=== PATIENT | female | born 1990 | race Hispanic/Latino ===

== ENCOUNTER 2017-04-07 04:35 | Emergency (ER) | payer BC ==
[2017-04-07 04:58] VITALS: BMI 24.3
[2017-04-07 05:01] VITALS: BP 135/84; PULSE 89; RESP 16; TEMP 97.7; O2SAT 99
[2017-04-07] MEDS ORDERED: Sodium Chloride 0.9% 1,000 ML IV STA (05:24)
[2017-04-07 05:33] LABS: BASO % 0.1 % (0.0-2.0); EOS % 0.3 % (0.0-4.0); HEMATOCRIT 41.7 % (34.0-47.0); LYMPH # 0.4 K/uL (1.0-4.3); LYMPH % 3.1 % (20.0-40.0); MEAN CELL VOLUME 96.8 fl (81.0-99.0); MEAN CORPUSCULAR HEMOGLOBIN 31.8 pg (27.0-31.0); MEAN CORPUSCULAR HGB CONC 32.8 g/dL (33.0-37.0); MEAN PLATELET VOLUME 8.1 fl (7.2-11.7); MONO # 0.5 K/uL (0.0-0.8); MONO % 3.6 % (0.0-10.0); NEUT # 13.6 K/uL (1.8-7.0); NEUT % 92.9 % (50.0-75.0); PLATELET COUNT 246 K/uL (130-400); RED CELL DISTRIBUTION WIDTH 12.7 % (11.5-14.5); WHITE BLOOD COUNT 14.6 K/uL (4.8-10.8)
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
[2017-04-07 05:45] LABS: ALB/GLOB RATIO 1.5 (1.0-2.1); ALKALINE PHOSPHATASE 64 U/L (38-126); ALT/SGPT 28 U/L (9-52); AST/SGOT 32 U/L (14-36); BILIRUBIN,TOTAL 0.9 mg/dl (0.2-1.3); BLOOD UREA NITROGEN 14 mg/dl (7-17); CALCIUM 9.4 mg/dL (8.4-10.2); CARBON DIOXIDE 24 mmol/L (22-30); CHLORIDE 105 mmol/L (98-107); GFR AFRICAN-AMERICAN > 60; GLUCOSE,RANDOM 125 mg/dL (65-105); LIPASE 89 U/L (23-300); POTASSIUM 4.7 MMOL/L (3.6-5.0); SODIUM 141 mmol/l (132-148); TOTAL PROTEIN 7.6 G/DL (6.3-8.2)
[2017-04-07 10:17] LABS: BASOPHIL 1 % (0-2); EOSINOPHIL 1 % (0-7); NEUTROPHIL 87 % (42-75); TOTAL CELLS COUNTED 100
== END 2017-04-07 07:01 | disposition home or self-care (01) ==
LOC: H.ER 04:35
DX: K52.9 Noninfective gastroenteritis and colitis, unspecified (principal)
CPT/HCPCS: 80053; 81025; 83690; 84702; 85025; 96374; 99283; J2405; J7040

== ENCOUNTER 2017-10-21 19:33 | Emergency (ER) | payer OTHER, BC ==
[2017-10-21 19:33] VITALS: BMI 24.3
[2017-10-21 20:14] VITALS: BP 132/89; PULSE 67; RESP 16; TEMP 98.4; O2SAT 99
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
== END 2017-10-21 21:12 | disposition home or self-care (01) ==
LOC: H.ER 19:33
DX: T14.8XXA Other injury of unspecified body region, initial encounter (principal); V03.10XA Pedestrian on foot injured in collision with car, pick-up truck or van in traffic accident, initial encounter